=== PATIENT | male | born 1995 ===

== ENCOUNTER 2021-04-28 08:42 | Emergency (ER) | payer SELFPAY ==
[2021-04-28 08:45] VITALS: BP 135/81; PULSE 88; RESP 14; TEMP 37.1; O2SAT 100
--- NOTE | 2021-04-28 08:50 | PC.NURSE ---
RN attempted to draw patients blood. pt. states I want to go get my med list before you do that. Pt. removed BP cuff and monitor cords and walked out of department with steady gait and no distress. pt. car observed leaving parking lot. ERP notified of pt. departure.
== END 2021-04-28 09:07 | disposition left against medical advice (07) ==
LOC: ANHED 08:57
DX: R10.9 Unspecified abdominal pain (principal)
CPT/HCPCS: 99199